=== PATIENT | female | born 1995 | race Caucasian/White ===

== ENCOUNTER 2023-05-19 16:47 | Emergency (ER) | payer MEDICAID, OTHER ==
[~2023-05-19] VITALS: Ht 165.1 cm; Wt 105.0 kg
[2023-05-19 16:59] VITALS: BP 117/81; TEMP 98.5; O2SAT 97
[2023-05-19 17:03] VITALS: PULSE 81; RESP 20
[2023-05-19] MEDS ORDERED: NAP5EC MT (20:31)
== END 2023-05-19 22:04 | disposition home or self-care (01) ==
LOC: ER 16:47
DX: M25.561 Pain in right knee (principal)
CPT/HCPCS: 73560; 99283